=== PATIENT | female | born 2005 | race Caucasian/White ===

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

== ENCOUNTER 2024-01-17 12:07 | Emergency (ER) | payer OTHER ==
--- NOTE | 2024-01-17 12:48 | EDPHYS ---
Physician Documentation [facility] Name: Memo Hobson Age: 18 yrs Sex: Female : 2005 Arrival Date: 01/17/2024 Time: 12:07 Bed 11 Private MD: ED Physician Gretchen Sol HPI: 01/16 12:42 This 18 yrs old Female presents to ER via EMS with complaints of Knee Pain. sb4 12:42 Patient states that she had surgery to repair a left patella fracture about 3 weeks sb4 ago. She is concerned because she thinks the incision site might be infected. She has not been able to follow-up with her surgeon due to lack of transportation. She states that she has had some swelling, pain, and itching in her incision site. She states that she is not sure how to care or clean for it. She has run out of pain medications and has not taken any other medicine for the pain or the itching. She denies any known fever. 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 - Infectious Disease History:: Denies. - Social history:: Smoking status: Patient denies any tobacco usage or history of. ROS: 12:42 Constitutional: Negative for fever, chills, and weight loss, sb4 12:42 MS/extremity: Positive for pain, of the left knee, 12:42 Skin: Positive for swelling, of the left knee, Itching, 12:42 All other systems are negative, Exam: 12:42 Head/Face: Normocephalic, atraumatic. Eyes: Extra-ocular motions intact. Periorbital sb4 areas with no swelling, redness, or edema. ENT: Mucous membranes moist. 12:42 Constitutional: The patient appears in no acute distress, alert, awake, odor- body odor 12:42 Skin: Wound recheck: Surgical incision site anterior knee well-approximated, healing well. I removed Steri-Strips. No dehiscence, swelling, erythema, 12:42 Musculoskeletal/extremity: ROM: limited active range of motion, limited passive range sb4 of motion, Circulation is intact in all extremities. Pulses: are normal with no appreciated deficits, Perfusion: the extremity is normally perfused throughout, Sensation intact. Vital Signs: 12:15 BP 122 / 76; Pulse 97; Resp 18; Temp 98.7(O); Pulse Ox 100% on R/A; Weight 93.89 kg; tl4 Height 5 ft. 4 in. ; Pain 8/10; 12:45 BP 125 / 79; Pulse 87; Resp 16; Temp 98.3(O); Pulse Ox 100% on R/A; tl4 12:15 Body Mass Index 35.53 (93.89 kg, 162.56 cm) - Percentile 97.6 % tl4 12:15 Pain Scale: Adult tl4 MDM: 12:09 Patient medically screened. sb4 12:45 Data reviewed: vital signs, nurses notes, and as a result, I will discharge patient. sb4 Counseling: I had a detailed discussion with the patient and/or guardian regarding the historical points, exam findings, and any diagnostic results supporting the discharge/admit diagnosis, the need for outpatient follow up, a orthopedic surgeon, to return to the emergency department if symptoms worsen or persist or if there are any questions or concerns that arise at home. 01/16 12:32 Order name: Wound Care; Complete Time: 12:55 sb4 01/16 12:32 Order name: Wound dressing; Complete Time: 12:55 sb4 Administered Medications: 13:08 Drug: HYDROcodone-acetaminophen PO 5 mg-325 mg 1 tabs PO once Route: PO; tl4 13:10 Follow up: Response: No adverse reaction; Medication Administered at Departure tl4 13:08 Drug: diphenhydrAMINE PO 25 mg PO once Route: PO; tl4 13:10 Follow up: Response: No adverse reaction; Medication administered at discharge. tl4 Disposition Summary: 01/17/24 12:47 Discharge Ordered Notes: Location: Home sb4 Problem: an ongoing problem sb4 Symptoms: have improved sb4 Condition: Stable sb4 Diagnosis - Pain in left knee sb4 Followup: sb4 - With: Private Physician - When: 2 - 3 days - Reason: Recheck today's complaints, Re-evaluation by your physician Discharge Instructions: - Discharge Summary Sheet sb4 - Wound Care, Adult sb4 - Incision Care, Adult, [id number] sb4 Forms: - Patient Portal Instructions sb4 - Leadership Thank You Letter sb4 Signatures: Hyun Zamudio PA-C PA-C sb4 Laurent Alatorre, RN RN tl4
--- NOTE | 2024-01-17 12:48 | ER ---
Nurse's Notes [facility] Name: Memo Hobson Age: 18 yrs Sex: Female : 2005 Arrival Date: 01/17/2024 Time: 12:07 Bed 11 Private MD: Diagnosis: Pain in left knee Presentation: 01/16 12:15 Chief complaint: Patient states: Pt c/o increased pain, swelling, and itching in left tl4 knee s/p knee surgery approx 2 weeks ago for 'brokien kneecap'. Pt also c/o hip, back, neck and head pain x 1 week. Pt states she is out of her pain medications. Pt did not follow up with surgeon. Coronavirus screen: At this time, the client does not indicate any symptoms associated with coronavirus-19. Ebola Screen: No symptoms or risks identified at this time. Initial Sepsis Screen: Does the patient meet any 2 criteria? No. Patient's initial sepsis screen is negative. Does the patient have a suspected source of infection? No. Patient's initial sepsis screen is negative. Risk Assessment: Do you want to hurt yourself or someone else? Patient reports no desire to harm self or others. Onset of symptoms was January 10, 2024. 12:15 Method Of Arrival: EMS: [facility] tl4 12:15 Acuity: SHERWIN 3 tl4 Triage Assessment: 12:22 General: Appears in no apparent distress. Behavior is calm, cooperative. Pain: tl4 Complains of pain in scalp, left leg and neck and hips and back. EENT: No signs and/or symptoms were reported regarding the EENT system. Neuro: Level of Consciousness is awake, alert, obeys commands, Oriented to person, place, time, situation, Moves all extremities. Full function Speech is normal. Cardiovascular: Capillary refill < 3 seconds Patient's skin is warm and dry. Respiratory: Airway is patent Respiratory effort is even, unlabored, Respiratory pattern is regular, symmetrical, Breath sounds are clear bilaterally. GI: No signs and/or symptoms were reported involving the gastrointestinal system. : No signs and/or symptoms were reported regarding the genitourinary system. Derm: surgical incision site appears well healed; no noted redness, swelling, discharge from site. Wound is well approximated. Musculoskeletal: Reports pain in back, left leg and neck and hips. 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 - Infectious Disease History:: Denies. - Social history:: Smoking status: Patient denies any tobacco usage or history of. Screenin:53 [facility] ED Fall Risk Assessment (Adult) History of falling in the last 3 months, tl4 including since admission No falls in past 3 months (0 pts) Confusion or Disorientation No (0 pts) Intoxicated or Sedated No (0 pts) Impaired Gait No (0 pts) Mobility Assist Device Used No (0 pt) Altered Elimination No (0 pt) Score/Fall Risk Level 0 - 2 = Low Risk Oriented to surroundings, Maintained a safe environment, Educated pt \T\ family on fall prevention, incl call for assistance when getting out of bed, Assessed \T\ reinforced patient's understanding of fall precautions. Abuse screen: Denies threats or abuse. Denies injuries from another. Nutritional screening: No deficits noted. Tuberculosis screening: No symptoms or risk factors identified. Assessment: 13:00 Reassessment: No changes from previously documented assessment. Patient and/or family tl4 updated on plan of care and expected duration. Pain level reassessed. Patient is alert, oriented x 3, equal unlabored respirations, skin warm/dry/pink. Vital Signs: 12:15 BP 122 / 76; Pulse 97; Resp 18; Temp 98.7(O); Pulse Ox 100% on R/A; Weight 93.89 kg; tl4 Height 5 ft. 4 in. ; Pain 8/10; 12:45 BP 125 / 79; Pulse 87; Resp 16; Temp 98.3(O); Pulse Ox 100% on R/A; tl4 12:15 Body Mass Index 35.53 (93.89 kg, 162.56 cm) - Percentile 97.6 % tl4 12:15 Pain Scale: Adult tl4 ED Course: 12:09 Patient arrived in ED. sb4 12:09 Hyun Zamudio PA-C is PHCP. sb4 12:09 Gretchen Sol MD is Attending Physician. sb4 12:15 Laurent Alatorre, PATSY is Primary Nurse. tl4 12:22 Triage completed. tl4 12:33 Wound care: to surgical incision located on left knee was cleaned with soap and water, tl4 dressed with Neosporin, 4X4s, edwardo wrap. 12:35 Edwardo wrap to left knee. tl4 12:38 Arm band placed on right wrist. tl4 12:54 Patient has correct armband on for positive identification. Bed in low position. Call tl4 light in reach. Side rails up X 1. Adult w/ patient. Provided Education on: ed process, call morrison. Client placed on continuous cardiac and pulse oximetry monitoring. NIBP monitoring applied. Door closed. Noise minimized. Moved to private room. 12:55 No provider procedures requiring assistance completed. Patient did not have IV access tl4 during this emergency room visit. Administered Medications: 13:08 Drug: HYDROcodone-acetaminophen PO 5 mg-325 mg 1 tabs PO once Route: PO; tl4 13:10 Follow up: Response: No adverse reaction; Medication Administered at Departure tl4 13:08 Drug: diphenhydrAMINE PO 25 mg PO once Route: PO; tl4 13:10 Follow up: Response: No adverse reaction; Medication administered at discharge. tl4 Medication: 12:52 VIS not applicable for this client. tl4 Outcome: 12:47 Discharge ordered by MD. sb4 13:10 Discharged to home via wheelchair, with family, tl4 13:10 Condition: stable 13:10 Discharge instructions given to patient, family, Instructed on discharge instructions, follow up and referral plans. medication usage, wound care, Demonstrated understanding of instructions, follow-up care, medications, wound care, 13:29 Patient left the ED. tl4 Signatures: Hyun Zamudio PA-C PA-C sb4 Laurent Alatorre, RN RN tl4 Corrections: (The following items were deleted from the chart) 13:27 12:35 BP 125 / 79; Pulse 87bpm; Resp 16bpm; Pulse Ox 100% RA; Temp 98.3F Oral; tl4 tl4 13:28 13:06 Discharged to home via wheelchair, with family, tl4 tl4 : 13:06 Condition: stable tl4 tl4 13: 13:06 Discharge instructions given to patient, family, Instructed on discharge tl4 instructions, follow up and referral plans. medication usage, wound care, Demonstrated understanding of instructions, follow-up care, medications, wound care, tl4
[2024-01-17] MEDS ORDERED: HYDROCODONE/APAP 5/325 MG TAB ONE (12:54)
[2024-01-17] MEDS ORDERED: DIPHENHYDRAMINE 25 MG TAB/CAP ONE (12:55)
[2024-01-17 13:40] VITALS: O2SAT 100
[2024-01-17 13:45] VITALS: BP 125/79; TEMP 98.3
== END 2024-01-17 13:29 | disposition home or self-care (01) ==
LOC: ER 12:07
DX: M25.562 Pain in left knee (principal); Z98.890 Other specified postprocedural states
CPT/HCPCS: 99284

== ENCOUNTER 2024-03-03 02:56 | Emergency (ER) | payer OTHER ==
[2024-03-03] MEDS ORDERED: NA CHLORIDE 0.9% 2,000 ML ONE (03:16)
[2024-03-03 03:29] LABS: Absolute Basophils 0.1 K/uL (0-0.5); Absolute Eosinophils 0.1 K/uL (0-0.5); Absolute Lymphocytes (CBC) 2.9 K/uL (0.7-4.9); Absolute Monocytes 0.9 K/uL (0.1-1.3); Absolute Neutrophil 5.9 K/uL (1.8-8.0); Basophils % 0.6 % (0-1.3); Eosinophils % 1.5 % (0-4.4); Hematocrit 40.8 % (36.0-45.0); Hemoglobin 13.2 g/dL (12.0-15.0); Lymphocytes % 29.2 % (15.3-44.8); MCH 24.9 pg (27.0-35.0); MCHC 32.3 g/dL (32.0-36.0); MCV 77.2 fL (80-100); MPV 9.3 fL (7.6-11.3); Monocytes % 8.9 % (3.3-12.3); Neutrophils % 59.8 % (41.7-73.7); Platelets 318 thou/uL (152-406); RBC Red Blood Cell Count 5.28 M/uL (3.86-4.86)
[2024-03-03 03:31] LABS: Specific Gravity 1.023 (1.005-1.030); Sqamous Epithelial <5 /HPF (None Seen); Urine Bacteria <20 /HPF (<20); Urine Bilirubin NEGATIVE (Negative); Urine Blood Negative (Negative); Urine Clarity Turbid (Clear); Urine Color Light-Yellow (Yellow); Urine Culture Reflex Order NOT NEEDED; Urine Glucose NEGATIVE (Negative); Urine Ketones NEGATIVE (Negative); Urine Microscopic Reflex YN ORDER UMIC; Urine Mucus 1+ /HPF (None Seen); Urine Nitrite 2+ (Negative); Urine Protein NEGATIVE (Negative); Urine RBC <5 /HPF (None Seen); Urine Urobilinogen Normal (Normal); Urine WBC <5 /HPF (<5); Urine pH 5.5 (5.0-7.0)
[2024-03-03 03:32] LABS: PT Prothrombin Time 11.4 SECONDS (9.4-12.5); PTT, Activated Partial Thromb 29.7 SECONDS (24.3-36.9); Protime INR 1.02
[2024-03-03 03:37] LABS: Barbiturates NEGATIVE (NEGATIVE); Benzodiazepines NEGATIVE (NEGATIVE); Cocaine NEGATIVE (NEGATIVE); METHAMPHETAM NEGATIVE (NEGATIVE); Methadone NEGATIVE (NEGATIVE); Opiates NEGATIVE (NEGATIVE); Phencyclidine NEGATIVE (NEGATIVE); THC Cannibis NEGATIVE (NEGATIVE)
[2024-03-03 03:48] LABS: ALT/SGPT 36 U/L (13-56); AST/SGOT 20 U/L (15-37); Albumin 3.6 g/dL (3.4-5.0); Albumin/Globulin Ratio 0.8 (1.1-1.8); Alkaline Phosphatase 87 U/L (45-117); Anion Gap 8.2 mEq/L (5.0-15.0); BUN Blood Urea Nitrogen 12 mg/dL (7-18); Bicarbonate 25 mEq/L (21-32); Bilirubin Direct < 0.2 mg/dL (0-0.2); Bilirubin Total 0.2 mg/dL (0.2-1.0); Globulin 4.7 g/dL (2.3-3.5); Glomerular Filtration Rate 112 ml/min (=/>90); Glucose Level 93 mg/dL (74-106); Potassium 3.2 mEq/L (3.5-5.1); Protein, Total 8.3 g/dL (6.4-8.2); Sodium Level 141 mEq/L (136-145)
--- NOTE | 2024-03-03 04:29 | EDPHYS ---
Physician Documentation [facility] Name: Memo Hobson Age: 18 yrs Sex: Female : 2005 Arrival Date: 03/03/2024 Time: 02:56 Bed 6 Private MD: ED Physician Ronaldo Chung HPI: 03/03 03:01 This 18 yrs old Female presents to ER via Unassigned with complaints of sp4 overdose on Zoloft . 04:18 . sp4 04:26 Patient to 10 mg of Zoloft x 20 tabs prior to arrival , also consumes 6 tabs of full sp4 dose aspirin prior to arrival. Reports she did this out of suicide attempt. . 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 - Infectious Disease History:: Denies. - Social history:: Smoking status: Patient denies any tobacco usage or history of. - Family history:: not pertinent. ROS: 04:26 Constitutional: Negative for fever, chills, and weight loss, positive for depression , sp4 positive for suicide attempt 04:26 All other systems are negative, Exam: 04:23 Constitutional: This is a well developed, well nourished patient who is awake, alert, sp4 and in no acute distress. Head/Face: Normocephalic, atraumatic. Eyes: Pupils equal round and reactive to light, extra-ocular motions intact. Lids and lashes normal. Conjunctiva and sclera are not injected. Cornea within normal limits. Periorbital areas with no swelling, redness, or edema. ENT: Nares patent. No nasal discharge, no septal abnormalities noted. Tympanic membranes are normal and external auditory canals are clear. Oropharynx with no redness, swelling, or masses, exudates, or evidence of obstruction, uvula midline. Mucous membranes moist. Neck: Trachea midline, no thyromegaly or masses palpated, and no cervical lymphadenopathy. Supple, full range of motion without nuchal rigidity, or vertebral point tenderness. Chest/axilla: Normal chest wall appearance and motion. Nontender with no deformity. No lesions are appreciated. Cardiovascular: Regular rate and rhythm with a normal S1 and S2. No gallops, murmurs, or rubs. Normal PMI, no JVD. No pulse deficits. Respiratory: Lungs have equal breath sounds bilaterally, clear to auscultation and percussion. No rales, rhonchi or wheezes noted. No increased work of breathing, no retractions or nasal flaring. Abdomen/GI: Soft, with normal bowel sounds. No distension or tympany. No guarding or rebound. No evidence of tenderness throughout. Back: No spinal tenderness. No costovertebral tenderness. Skin: Warm, dry with normal turgor. Normal color with no rashes, no lesions, and no evidence of cellulitis. MS/ Extremity: Pulses equal, no cyanosis. Neurovascular intact. Full, normal range of motion. Neuro: Awake and alert, GCS 15, oriented to person, place, time, and situation. Cranial nerves II-XII grossly intact. Motor strength 5/5 in all extremities. Sensory grossly intact. Psych: Awake, alert, with orientation to person, place and time. Behavior, mood, and affect are within normal limits 04:23 ECG was reviewed by the Attending Physician. EKG at 0302 NSR at normal sinus rhythm rate 66 Vital Signs: 02:56 BP 113 / 92; Pulse 88; Resp 16; Temp 98.8; Pulse Ox 99% ; Weight 90.72 kg; Height 5 ft. bm8 4 in. ; Pain 8/10; 03:34 BP 108 / 78; Pulse 61; Resp 20; Temp 98.8; Pulse Ox 99% ; Pain 2/10; bm8 04:00 BP 112 / 71; Pulse 80; Resp 19; Temp 98.7; Pulse Ox 100% ; Pain 0/10; bm8 05:00 BP 115 / 55; Pulse 67; Resp 16; Temp 98.7; Pulse Ox 96% ; Pain 0/10; bm8 05:51 BP 113 / 82; Pulse 68; Resp 20; Temp 98.8; Pulse Ox 99% on R/A; Pain 0/10; bm8 02:56 Body Mass Index 34.33 (90.72 kg, 162.56 cm) - Percentile 97.1 % bm8 02:56 Pain Scale: Adult bm8 03:34 Pain Scale: Adult bm8 04:00 Pain Scale: Adult bm8 05:00 Pain Scale: Adult bm8 05:51 Pain Scale: Adult bm8 Gretchen Coma Score: 03:34 Eye Response: spontaneous(4). Motor Response: obeys commands(6). Verbal Response: bm8 oriented(5). Total: 15. 04:00 Eye Response: spontaneous(4). Motor Response: obeys commands(6). Verbal Response: bm8 oriented(5). Total: 15. 04:23 Eye Response: spontaneous(4). Motor Response: obeys commands(6). Verbal Response: sp4 oriented(5). Total: 15. 05:00 Eye Response: spontaneous(4). Motor Response: obeys commands(6). Verbal Response: bm8 oriented(5). Total: 15. 05:51 Eye Response: spontaneous(4). Motor Response: obeys commands(6). Verbal Response: bm8 oriented(5). Total: 15. MDM: 03:02 Medical Screening Exam initiated sp4 04:26 Differential diagnosis: drug withdrawal. acute psychotic break, depression, psychosis sp4 secondary to non-compliance. Data reviewed: vital signs, nurses notes, lab test result(s), EKG. Consideration of Admission/Observation Escalation of care including admission/observation considered. ED course: Patient is medically cleared and will start transfer process to psychiatric hospital. 03/03 03:02 Order name: Acetaminophen; Complete Time: 04:18 sp4 03/03 03:02 Order name: Basic Metabolic Panel; Complete Time: 04:18 sp4 03/03 03:02 Order name: CBC with Diff; Complete Time: 04:18 sp4 03/03 03:02 Order name: ETOH Level; Complete Time: 04:18 sp4 03/03 03:02 Order name: Hepatic Function; Complete Time: 04:18 sp4 03/03 03:02 Order name: PT-INR; Complete Time: 04:18 sp4 03/03 03:02 Order name: Test, Urine; Complete Time: 04:18 sp4 03/03 03:02 Order name: Ptt, Activated; Complete Time: 04:18 sp4 03/03 03:02 Order name: Salicylate; Complete Time: 04:18 sp4 03/03 03:02 Order name: Urinalysis w/ reflexes; Complete Time: 04:18 sp4 03/03 03:02 Order name: Urine Drug Screen; Complete Time: 04:18 sp4 03/03 03:02 Order name: EKG - Nurse/Tech; Complete Time: 03:25 sp4 03/03 03:02 Order name: IV Saline Lock; Complete Time: 03:25 sp4 03/03 03:02 Order name: Labs collected and sent; Complete Time: 03:25 sp4 03/03 03:02 Order name: Suicide Precautions; Complete Time: 03:25 sp4 03/03 03:02 Order name: Suicide Screening ([place]); Complete Time: 03:25 sp4 EC:23 Rate is 66 beats/min. Rhythm is regular, Normal Sinus Rhythm. QRS [place] is Normal. [place] sp4 interval is normal. QRS interval is normal. QT interval is normal. No Q waves. T waves are Normal. No ST changes noted. Clinical impression: Normal ECG. Interpreted by me. Reviewed by me. Administered Medications: 03:25 Drug: NS 0.9% IV 1000 ml IV at 125 ml/hr continuous Route: IV; Rate: 125 ml/hr; Site: [facility] right antecubital; 06:14 Follow up: Response: No adverse reaction; IV Status: Order to discontinue infusion bm8 03:25 Drug: NS 0.9% IV 1000 ml IV at 1000 ml once; to be given as a bolus over 60 minutes bm8 Route: IV; Rate: 1000 ml; Site: right antecubital; 04:39 Follow up: Response: No adverse reaction; IV Status: Completed infusion; IV Intake: bm8 1000ml Disposition Summary: 03/03/24 04:29 Transfer Ordered Notes: Transfer Location: Psych Facility sp4 Reason: Higher level of care sp4 Condition: Stable sp4 Problem: new sp4 Symptoms: have improved sp4 Accepting Physician: [facility] (03/03/24 06:13) bm8 Diagnosis - Acute overdose, acute SSRI overdose, acute aspirin overdose, worsening depression, sp4 suicidal ideation with plan Discharge Instructions: - Discharge Summary Sheet rv1 Forms: - SBAR form rv1 - Medication Reconciliation Form sp4 Signatures: Dispatcher [employer] EDMS Potepalov, Ronaldo, MD MD sp4 Andrew Kulkarni, RN RN bm8 Corrections: (The following items were deleted from the chart) 03:03 03:03 ACETAMINOPHEN+C.LAB.BRZ ordered. EDMS EDMS 03:03 03:03 BASIC METABOLIC PANEL+C.LAB.BRZ ordered. EDMS EDMS 03:03 03:03 CBC+H.LAB.BRZ ordered. EDMS EDMS 03:03 03:03 ETHANOL+C.LAB.BRZ ordered. EDMS EDMS 03:03 03:03 HEPATIC FUNCTION+C.LAB.BRZ ordered. EDMS EDMS 03:03 03:03 PROTIME (+INR)+COAG.LAB.BRZ ordered. EDMS EDMS 03:03 03:03 Test, Urine+UC.LAB.BRZ ordered. EDMS EDMS 03:03 03:03 PTT, ACTIVATED+COAG.LAB.BRZ ordered. EDMS EDMS 03:03 03:03 SALICYLATE+C.LAB.BRZ ordered. EDMS EDMS 03:03 03:03 Urinalysis+U.LAB.BRZ ordered. EDMS EDMS 03:03 03:03 URINE DRUG SCREEN+UC.LAB.BRZ ordered. EDMS EDMS 06:13 04:29 [facility] sp4 bm8
--- NOTE | 2024-03-03 04:29 | ER ---
Nurse's Notes [facility] Name: Memo Hobson Age: 18 yrs Sex: Female : 2005 Arrival Date: 03/03/2024 Time: 02:56 Bed 6 Private MD: Diagnosis: Acute overdose, acute SSRI overdose, acute aspirin overdose, worsening depression, suicidal ideation with plan Presentation: 03/03 02:56 Chief complaint: Patient states: I TRIED TO KILL MY SELF BY TAKING ZOLOFT. i JUST DON'T bm8 FEEL IMPORTANT TO ANYONE. Coronavirus screen: At this time, the client does not indicate any symptoms associated with coronavirus-19. Ebola Screen: Patient negative for fever greater than or equal to 101.5 degrees Fahrenheit, and additional compatible Ebola Virus Disease symptoms Patient denies exposure to infectious person. Patient denies travel to an Ebola-affected area in the 21 days before illness onset. No symptoms or risks identified at this time. Initial Sepsis Screen: Does the patient meet any 2 criteria? No. Patient's initial sepsis screen is negative. Does the patient have a suspected source of infection? No. Patient's initial sepsis screen is negative. Risk Assessment: Do you want to hurt yourself or someone else? Patient reports desire/thoughts of hurting themselves or someone else. Provider notified. Onset of symptoms is unknown. 02:56 Method Of Arrival: EMS: [facility] bm8 02:56 Acuity: SHERWIN 2 bm8 Triage Assessment: 02:56 General: Appears in no apparent distress. uncomfortable, Behavior is cooperative, bm8 appropriate for age, drowsy. General: EMS already called poison control . Pain: Complains of pain in chest Pain currently is 8 out of 10 on a pain scale. Quality of pain is described as sharp, Pain began suddenly. EENT: No deficits noted. No signs and/or symptoms were reported regarding the EENT system. Neuro: No deficits noted. Level of Consciousness is awake, alert, obeys commands, Oriented to person, place, time, situation, Appropriate for age Developmental Psychologist are equal bilaterally Moves all extremities. Full function Gait is Speech is normal, Facial symmetry appears normal, Pupils are PERRLA, Pupil Size: 5mm dilated, Reports photophobia. Cardiovascular: Reports chest pain, Heart tones S1 S2 present Capillary refill < 3 seconds in bilateral fingers toes Patient's skin is warm and dry. Rhythm is sinus rhythm. Respiratory: Airway is patent Trachea midline Respiratory effort is even, unlabored, Respiratory pattern is regular, symmetrical, Breath sounds are clear bilaterally. GI: No deficits noted. No signs and/or symptoms were reported involving the gastrointestinal system. : No deficits noted. No signs and/or symptoms were reported regarding the genitourinary system. Derm: No deficits noted. No signs and/or symptoms reported regarding the dermatologic system. Musculoskeletal: No deficits noted. No signs and/or symptoms reported regarding the musculoskeletal system. 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 - Infectious Disease History:: Denies. - Social history:: Smoking status: Patient denies any tobacco usage or history of. - Family history:: not pertinent. Screenin:34 [facility] ED Fall Risk Assessment (Adult) History of falling in the last 3 months, bm8 including since admission No falls in past 3 months (0 pts) Confusion or Disorientation No (0 pts) Intoxicated or Sedated No (0 pts) Impaired Gait Yes (1 pt) Mobility Assist Device Used No (0 pt) Altered Elimination No (0 pt) Score/Fall Risk Level 0 - 2 = Low Risk Oriented to surroundings, Maintained a safe environment, Educated pt \\T\\ family on fall prevention, incl call for assistance when getting out of bed, Assessed \\T\\ reinforced patient's understanding of fall precautions, Hourly rounding (assess needs \\T\\ fall precautionary measures) done, Used ambulatory aids as needed (educated on \\T\\ assisted with), Used gait belt as appropriate. Abuse screen: Denies threats or abuse. Nutritional screening: No deficits noted. Tuberculosis screening: No symptoms or risk factors identified. Assessment: 03:34 Reassessment: Patient appears in no apparent distress at this time. Patient and/or bm8 family updated on plan of care and expected duration. Pain level reassessed. Patient is alert, oriented x 3, equal unlabored respirations, skin warm/dry/pink. pt is in room by self, resting with eyes closed breathing is even unlabored at this time Patient denies pain at this time. Patient states feeling better. Patient states symptoms have improved. 04:00 Reassessment: Patient appears in no apparent distress at this time. Patient and/or bm8 family updated on plan of care and expected duration. Pain level reassessed. Patient is alert, oriented x 3, equal unlabored respirations, skin warm/dry/pink. Patient denies pain at this time. Patient states feeling better. Patient states symptoms have improved. General: Appears in no apparent distress. comfortable, Behavior is calm, cooperative, appropriate for age. Pain: Denies pain. Neuro: No deficits noted. Level of Consciousness is awake, alert, obeys commands, Oriented to person, place, time, situation, Appropriate for age. Cardiovascular: Denies chest pain, Heart tones S1 S2 present. Respiratory: Airway is patent Respiratory effort is even, unlabored, Respiratory pattern is regular, symmetrical, Breath sounds are clear bilaterally. GI: No signs and/or symptoms were reported involving the gastrointestinal system. : No signs and/or symptoms were reported regarding the genitourinary system. EENT: No signs and/or symptoms were reported regarding the EENT system. Derm: No signs and/or symptoms reported regarding the dermatologic system. Musculoskeletal: No signs and/or symptoms reported regarding the musculoskeletal system. 04:49 Reassessment: Report to PATSY Campbell \\José Manuel\\ [facility]. bm8 05:00 Reassessment: Patient appears in no apparent distress at this time. No changes from bm8 previously documented assessment. Patient and/or family updated on plan of care and expected duration. Pain level reassessed. Patient is alert, oriented x 3, equal unlabored respirations, skin warm/dry/pink. 05:51 Reassessment: Patient appears in no apparent distress at this time. No changes from bm8 previously documented assessment. Patient and/or family updated on plan of care and expected duration. Pain level reassessed. Patient is alert, oriented x 3, equal unlabored respirations, skin warm/dry/pink. 05:55 Reassessment: Pt's belonging were handed off to [facility] in sight of pt. bm8 Psych: 02:56 [place] Suicide Severity Screening: In the past month, have you wished you were bm8 or wished you could go to sleep and not wake up? Patient responds "yes." Based off the client's responses additional C-SSRS screening is required. "In the past month, have you actually had any thoughts of killing yourself?" Patient responds "yes." Based off the client's response additional [place] suicide severity screening questions to be further documented on paper forms. "In your lifetime, have you ever done anything, started to do anything, or prepared to do anything to end your life?" Patient responds "yes." Patient reports suicidal intent within 3 past months. Patient reports suicidal intent occurred greater than 3 months prior. pt has multiple attempts in past. Subjective: Patient's mood is sad, Delusions are denied, Hallucinations are denied Having thoughts of suicide. Plan for suicide is overdose by medication. Objective: Patient is cooperative, Speech is normal, Affect is appropriate. Interventions: Removed personal items and placed in bag. Patient placed in hospital gown. Searched person for dangerous items. Urine collected and sent for urine drug test. Belonging list filled out. Patient reassessed during use of restraints. Patient is physically safe. Patient's cardiac status is stable. Patient's respirations are even and unlabored. Patient has good circulation in all extremities as indicated by capillary refill < 3 seconds. Patient's ROM assessed and is intact. Patient nutrition and hydration needs will continue to be monitored and addressed. Patient hygiene and elimination needs met. Patient assessed for signs of distress. Patient remains reasonably comfortable at this time. Safety Checks: Personal items have been removed. Door is open. No visitors are present at this time. pt's asked to wait in lobby until pt is settled in room. Pt denies substance abuse. Commitment: Patient will be a voluntary commitment. Vital Signs: 02:56 BP 113 / 92; Pulse 88; Resp 16; Temp 98.8; Pulse Ox 99% ; Weight 90.72 kg; Height 5 ft. bm8 4 in. ; Pain 8/10; 03:34 BP 108 / 78; Pulse 61; Resp 20; Temp 98.8; Pulse Ox 99% ; Pain 2/10; bm8 04:00 BP 112 / 71; Pulse 80; Resp 19; Temp 98.7; Pulse Ox 100% ; Pain 0/10; bm8 05:00 BP 115 / 55; Pulse 67; Resp 16; Temp 98.7; Pulse Ox 96% ; Pain 0/10; bm8 05:51 BP 113 / 82; Pulse 68; Resp 20; Temp 98.8; Pulse Ox 99% on R/A; Pain 0/10; bm8 02:56 Body Mass Index 34.33 (90.72 kg, 162.56 cm) - Percentile 97.1 % bm8 02:56 Pain Scale: Adult bm8 03:34 Pain Scale: Adult bm8 04:00 Pain Scale: Adult bm8 05:00 Pain Scale: Adult bm8 05:51 Pain Scale: Adult bm8 Gretchen Coma Score: 03:34 Eye Response: spontaneous(4). Motor Response: obeys commands(6). Verbal Response: bm8 oriented(5). Total: 15. 04:00 Eye Response: spontaneous(4). Motor Response: obeys commands(6). Verbal Response: bm8 oriented(5). Total: 15. 04:23 Eye Response: spontaneous(4). Motor Response: obeys commands(6). Verbal Response: sp4 oriented(5). Total: 15. 05:00 Eye Response: spontaneous(4). Motor Response: obeys commands(6). Verbal Response: bm8 oriented(5). Total: 15. 05:51 Eye Response: spontaneous(4). Motor Response: obeys commands(6). Verbal Response: bm8 oriented(5). Total: 15. ED Course: 02:56 Arm band placed on right wrist. bm8 02:57 Patient arrived in ED. rv1 03:00 Safety Checks: Personal items have been removed. The door is open or patient has been bm8 placed in a hallway bed/chair. There are no family/friend visitors at this time Sitter present at this time. 03:01 Ronaldo Chung MD is Attending Physician. sp4 03:22 Andrew Kulkarni, PATSY is Primary Nurse. bm8 03:28 Triage completed. bm8 03:34 Patient has correct armband on for positive identification. Bed in low position. Side bm8 rails up X 1. Client placed on continuous cardiac and pulse oximetry monitoring. NIBP monitoring applied. shot fireman on. Pulse ox on. NIBP on. Noise minimized. Visitors limited. Lights dimmed. Warm blanket given. Pillow given. Verbal reassurance given. Head of bed lowered. 03:34 No provider procedures requiring assistance completed. Initial lab(s) drawn, by me, bm8 sent to lab. Urine collected: clean catch specimen, clear, EKG done, by ED staff, reviewed by Ronaldo Chung MD. Inserted saline lock: 20 gauge in right antecubital area, using aseptic technique. Blood collected. Flushed with 10 mL NS. Patient maintains SpO2 saturation greater than 95% on room air. 04:00 Safety Checks: Personal items have been removed. The door is open or patient has been bm8 placed in a hallway bed/chair. There are no family/friend visitors at this time Sitter present at this time. 04:24 Faxed pt clinicals to the following facilities for placement; [address] 04:34 Provided Education on: SI/HI policies and procedures . bm8 04:40 Pt accepted to [facility] by Dr. Parr. rv1 04:54 Admin Approval given by Marcelo Knox. rv1 05:00 Safety Checks: Personal items have been removed. The door is open or patient has been bm8 placed in a hallway bed/chair. A family member and/or friend is present and encouraged to stay. at bedside Sitter present at this time. 05:10 Justine with [facility] gave 20 min ETA. rv1 05:51 Safety Checks: Personal items have been removed. The door is open or patient has been bm8 placed in a hallway bed/chair. A family member and/or friend is present and encouraged to stay. Sitter present at this time. 05:51 IV discontinued, intact, bleeding controlled, No redness/swelling at site. Pressure bm8 dressing applied. Administered Medications: 03:25 Drug: NS 0.9% IV 1000 ml IV at 125 ml/hr continuous Route: IV; Rate: 125 ml/hr; Site: bm8 right antecubital; 06:14 Follow up: Response: No adverse reaction; IV Status: Order to discontinue infusion bm8 03:25 Drug: NS 0.9% IV 1000 ml IV at 1000 ml once; to be given as a bolus over 60 minutes bm8 Route: IV; Rate: 1000 ml; Site: right antecubital; 04:39 Follow up: Response: No adverse reaction; IV Status: Completed infusion; IV Intake: bm8 1000ml Medication: 03:34 VIS not applicable for this client. bm8 Intake: 04:39 IV: 1000ml; Total: 1000ml. bm8 Outcome: 04:29 ER care complete, transfer ordered by . sp4 06:00 Transferred by ground EMS Transfer form completed. Note: [facility] bm8 06:00 Condition: stable 06:00 Instructed on the need for transfer, Demonstrated understanding of instructions, follow-up care, medications, 06:13 Patient left the ED. bm8 Signatures: Lyly Pike rv1 Ronaldo Chung MD MD sp4 Andrew Kulkarni RN RN bm8 Corrections: (The following items were deleted from the chart) 03:40 02:56 Risk Assessment: Do you want to hurt yourself or someone else? Patient reports no bm8 desire to harm self or others. bm8 05:20 05:19 Pt accepted to [facility] by Dr. Parr rv1 rv1
[2024-03-03 07:29] VITALS: BP 113/82; TEMP 98.8; O2SAT 99
== END 2024-03-03 06:13 ==
LOC: ER 02:56
DX: T43.222A Poisoning by selective serotonin reuptake inhibitors, intentional self-harm, initial encounter (principal); T39.012A Poisoning by aspirin, intentional self-harm, initial encounter; F32.A Depression, unspecified
CPT/HCPCS: 96361; 93005; 85025; 81001; 80048; 36415; 81025; 85610; 80076; 85730; 80307; 96360; 99285; 80143; 80179; 82077; J7030

== ENCOUNTER 2024-10-01 07:42 | Emergency (ER) | payer OTHER ==
[2024-10-01 08:29] LABS: Specific Gravity 1.018 (1.005-1.030)
[2024-10-01 08:39] LABS: Absolute Lymphocytes (CBC) 2.1 K/uL (0.7-4.9); Absolute Monocytes 0.7 K/uL (0.1-1.3); Absolute Neutrophil 5.4 K/uL (1.8-8.0); Basophils % 0.6 % (0-1.3); Eosinophils % 0.3 % (0-4.4); Hematocrit 37.4 % (36.0-45.0); Hemoglobin 12.4 g/dL (12.0-15.0); Lymphocytes % 25.3 % (15.3-44.8); MCH 25.4 pg (27.0-35.0); MCV 76.8 fL (80-100); MPV 9.9 fL (7.6-11.3); Neutrophils % 65.8 % (41.7-73.7); Platelets 238 thou/uL (152-406); RBC Red Blood Cell Count 4.88 M/uL (3.86-4.86); Red Cell Distribution Width 15.8 % (12.1-15.2)
[2024-10-01] MEDS ORDERED: IBUPROFEN 400 MG TAB ONE (08:44)
[2024-10-01] MEDS ORDERED: IBUPROFEN 200 MG TAB PO ONE (08:44)
[2024-10-01 09:04] LABS: ALT/SGPT 26 U/L (13-56); AST/SGOT 18 U/L (15-37); Albumin 3.6 g/dL (3.4-5.0); Albumin/Globulin Ratio 0.9 (1.1-1.8); Alkaline Phosphatase 85 U/L (45-117); Anion Gap 10.3 mEq/L (5.0-15.0); BUN Blood Urea Nitrogen 14 mg/dL (7-18); Bicarbonate 24 mEq/L (21-32); Bilirubin Total 0.4 mg/dL (0.2-1.0); Globulin 4.1 g/dL (2.3-3.5); Glomerular Filtration Rate 112 ml/min (=/>90); Glucose Level 89 mg/dL (74-106); Potassium 3.3 mEq/L (3.5-5.1); Protein, Total 7.7 g/dL (6.4-8.2); Sodium Level 141 mEq/L (136-145)
[2024-10-01 09:05] LABS: Bilirubin Direct < 0.2 mg/dL (0-0.2); Bilirubin Indirect, Calculated 0.2 mg/dL (0.2-0.8)
[2024-10-01 09:06] LABS: Barbiturates NEGATIVE (NEGATIVE); Benzodiazepines NEGATIVE (NEGATIVE); Cocaine NEGATIVE (NEGATIVE); METHAMPHETAM NEGATIVE (NEGATIVE); Methadone NEGATIVE (NEGATIVE); Opiates NEGATIVE (NEGATIVE); Phencyclidine NEGATIVE (NEGATIVE); THC Cannibis NEGATIVE (NEGATIVE)
--- NOTE | 2024-10-01 09:27 | ER ---
Nurse's Notes [facility] Name: Memo Hobson Age: 18 yrs Sex: Female : 2005 Arrival Date: 10/01/2024 Time: 07:42 Bed 14 Private MD: Diagnosis: Suicidal ideations Presentation: 10/01 07:45 Acuity: SHERWIN 2 hb 07:46 Risk Assessment: Do you want to hurt yourself or someone else? Patient reports db desire/thoughts of hurting themselves or someone else. Provider notified. 07:46 Onset of symptoms was October 01, 2024. db 07:53 Chief complaint: ARRIVED WITH PD PICKED UP FROM [facility]. PER PD REPORT PT HAS db NOT BEEN TAKING BIPOLAR MEDS. AT 0300 STARTED TALKING ABOUT WAYS TO KILL SELF AND WALKING AROUND CARRYING A KNIFE, MAKING RANDOM STATEMENTS OF OTHER WAYS TO KILL SELF. HAS NOT BEEN SLEEPING. NOW CALM COOPERATIVE. ON A PENITENTIARY WARRANT. Coronavirus screen: Client denies travel out of the [place] in the last 14 days. At this time, the client does not indicate any symptoms associated with coronavirus-19. Ebola Screen: Patient negative for fever greater than or equal to 101.5 degrees Fahrenheit, and additional compatible Ebola Virus Disease symptoms Patient denies exposure to infectious person. Patient denies travel to an Ebola-affected area in the 21 days before illness onset. No symptoms or risks identified at this time. 07:53 Method Of Arrival: Law Enforcement: [facility] db 09:16 Initial Sepsis Screen: Does the patient meet any 2 criteria? No. Patient's initial db sepsis screen is negative. Does the patient have a suspected source of infection? No. Patient's initial sepsis screen is negative. Triage Assessment: 07:56 General: Appears in no apparent distress. comfortable, Behavior is calm, cooperative. db Pain: Denies pain. Neuro: Level of Consciousness is awake, alert, obeys commands, Oriented to person, place, time, situation. Respiratory: Airway is patent Respiratory effort is even, unlabored, Respiratory pattern is regular, symmetrical. Historical: - Allergies: 07:52 NKDA; db - PMHx: 07:52 Anxiety; Bipolar disorder; depressive disorder; multiple personality disorder; PTSD; db - PSHx: 07:52 left knee; db - Immunization history:: Adult Immunizations unknown. - Infectious Disease History:: Denies. - Family history:: not pertinent. - Hospitalizations: : No recent hospitalization is reported. - Social history:: Smoking status: unknown. Screenin:35 [facility] ED Fall Risk Assessment (Adult) History of falling in the last 3 months, db including since admission No falls in past 3 months (0 pts) Confusion or Disorientation No (0 pts) Intoxicated or Sedated No (0 pts) Impaired Gait No (0 pts) Mobility Assist Device Used No (0 pt) Altered Elimination No (0 pt) Score/Fall Risk Level 0 - 2 = Low Risk Oriented to surroundings, Maintained a safe environment. Abuse screen: Denies threats or abuse. Denies injuries from another. Nutritional screening: No deficits noted. Tuberculosis screening: No symptoms or risk factors identified. Assessment: 07:56 Reassessment: PT AMBULATORY TO RESTROOM. db 09:16 Reassessment: REPORT GIVEN TO [facility]. db 09:34 Reassessment: Patient appears in no apparent distress at this time. Patient and/or db family updated on plan of care and expected duration. Pain level reassessed. Patient is alert, oriented x 3, equal unlabored respirations, skin warm/dry/pink. PT SITTING UP IN NAD. General: Appears in no apparent distress. comfortable, Behavior is calm, cooperative. Neuro: Level of Consciousness is awake, alert, obeys commands, Oriented to person, place, time, situation. Respiratory: Airway is patent Respiratory effort is even, unlabored, Respiratory pattern is regular, symmetrical. 10:00 Reassessment: Patient appears in no apparent distress at this time. Patient and/or db family updated on plan of care and expected duration. Pain level reassessed. Patient is alert, oriented x 3, equal unlabored respirations, skin warm/dry/pink. 10:05 Reassessment: EMS AT PATIENT BEDSIDE FOR TRANSPORT TO PSYCH FACILITY. db Psych: 07:46 [place] Suicide Severity Screening: In the past month, have you wished you were db or wished you could go to sleep and not wake up? Patient responds "yes." "In the past month, have you actually had any thoughts of killing yourself?" Patient responds "yes." "In your lifetime, have you ever done anything, started to do anything, or prepared to do anything to end your life?" Patient responds "yes." Patient reports suicidal intent occurred greater than 3 months prior. Subjective: Patient's mood is sad, Delusions are denied, Hallucinations are denied Having thoughts of suicide. Denies suicidal plan. Objective: Patient is cooperative, Speech is normal, Affect is appropriate. Objective:. Interventions:. Interventions: Removed personal items and placed in bag. Patient placed in hospital gown. Searched person for dangerous items. Urine collected and sent for urine drug test. Belonging list filled out. Safety Checks: Personal items have been removed. Door is open. No visitors are present at this time. Pt denies substance abuse. Commitment: Commitment papers completed. Vital Signs: 08:07 BP 116 / 89; Pulse 89; Resp 16; Temp 97.2; Pulse Ox 100% on R/A; Weight 81.65 kg; em1 Height 5 ft. 4 in. ; Pain 0/10; 10:06 BP 96 / 63; Pulse 60; Resp 16; Temp 97.8; Pulse Ox 99% ; db 08:07 Body Mass Index 30.90 (81.65 kg, 162.56 cm) - Percentile 94.3 % em1 08:07 Pain Scale: Adult em1 ED Course: 07:44 Patient arrived in ED. sj2 07:46 Jcarlos Harden MD is Attending Physician. rn 07:50 Sitter at bedside. db 07:52 Sabi Greene, PATSY is Primary Nurse. db 07:56 Arm band placed on Patient placed in an exam room. db 08:31 Acetaminophen Sent. em1 08:31 Basic Metabolic Panel Sent. em1 08:31 CBC with Diff Sent. em1 08:31 ETOH Level Sent. em1 08:31 Hepatic Function Sent. em1 08:31 Ptt, Activated Sent. em1 08:31 Salicylate Sent. em1 08:31 Urine Drug Screen Sent. em1 08:32 Initial lab(s) drawn, by me, sent to lab. Inserted saline lock: 20 gauge in right em1 antecubital area, using aseptic technique. Blood collected. Flushed with 10 mL NS. 08:49 EKG done, by ED staff, reviewed by Jcarlos Harden MD. em1 09:15 connected Louise from [facility] with Sabi Rn for nurse to nurse/. eb 09:29 administrative approval given by Lola Zamudio/ patient has been accepted to [facility]/ Dr. Marco A Mccauley has accepted the patient in transfer/. 09:36 Patient has correct armband on for positive identification. Bed in low position. Call db light in reach. Side rails up X 1. Warm blanket given. Pillow given. 10:00 Triage completed. 10:05 Provided Education on: TRANSFER TO PSYCH FACILITY . db 10:05 No provider procedures requiring assistance completed. IV discontinued, intact, db bleeding controlled, No redness/swelling at site. Administered Medications: 08:45 Drug: Ibuprofen PO 600 mg PO once Route: PO; db 09:23 Follow up: Response: No adverse reaction db Medication: 10:05 VIS not applicable for this client. db Outcome: 09:27 ER care complete, transfer ordered by . rn 10:05 Transferred by ground EMS Transfer form completed. Note: TO PSYCH FACILITY db 10:05 Condition: stable 10:05 Instructed on the need for transfer, 10:16 Patient left the ED. db Signatures: Jcarlos Harden MD MD rn Martinez, Eric em1 Heather Stafford, RN RN Nicky Acuna Sabi Greene, RN RN Alivia Enamorado sj2 Corrections: (The following items were deleted from the chart) 08:36 08:31 PROTIME (+INR)+COAG.LAB.BRZ drawn and sent. em1 EDMS
--- NOTE | 2024-10-01 09:27 | EDPHYS ---
Physician Documentation [facility] Name: Memo Hobson Age: 18 yrs Sex: Female : 2005 Arrival Date: 10/01/2024 Time: 07:42 Bed 14 Private MD: ED Physician Jcarlos Harden HPI: 10/01 08:15 This 18 yrs old Female presents to ER via [employer] with complaints of Suicidal rn Ideation. 08:15 The patient presents to the emergency department with depression, suicide ideation. rn Onset: The symptoms/episode began/occurred at an unknown time. Severity of symptoms: At their worst the symptoms were moderate in the emergency department the symptoms are unchanged. Patient reports suicidal ideations, police brought her in under [facility] for concerns that she is going to hurt herself. Per reports she was found with a knife. Patient has multiple admissions to psychiatric facilities. Denies any self-harm attempt, did not take any pills or overdose, did not cut herself.. Historical: - Allergies: 07:52 NKDA; db - PMHx: 07:52 Anxiety; Bipolar disorder; depressive disorder; multiple personality disorder; PTSD; db - PSHx: 07:52 left knee; db - Immunization history:: Adult Immunizations unknown. - Infectious Disease History:: Denies. - Family history:: not pertinent. - Hospitalizations: : No recent hospitalization is reported. - Social history:: Smoking status: unknown. ROS: 08:15 Constitutional: Negative for fever, chills, and weight loss, Neck: Negative for injury, rn pain, and swelling, Cardiovascular: Negative for chest pain, palpitations, and edema, Respiratory: Negative for shortness of breath, cough, wheezing, and pleuritic chest pain, Abdomen/GI: Negative for abdominal pain, nausea, vomiting, diarrhea, and constipation, MS/Extremity: Negative for injury and deformity, Skin: Negative for injury, rash, and discoloration, Neuro: Negative for headache, weakness, numbness, tingling, and seizure, Exam: 08:15 Constitutional: This is a well developed, well nourished patient who is awake, alert, rn and in no acute distress. Cardiovascular: Regular rate and rhythm. No pulse deficits. Respiratory: Speaking full sentences, unlabored. Neuro: Awake and alert, GCS 15 Psych: Awake, alert, with orientation to person, place and time. Behavior, mood, and affect are within normal limits. 10:52 ECG was reviewed by the Attending Physician. rn Vital Signs: 08:07 BP 116 / 89; Pulse 89; Resp 16; Temp 97.2; Pulse Ox 100% on R/A; Weight 81.65 kg; em1 Height 5 ft. 4 in. ; Pain 0/10; 10:06 BP 96 / 63; Pulse 60; Resp 16; Temp 97.8; Pulse Ox 99% ; db 08:07 Body Mass Index 30.90 (81.65 kg, 162.56 cm) - Percentile 94.3 % em1 08:07 Pain Scale: Adult em1 MDM: 07:46 Medical Screening Exam initiated rn 09:26 Differential diagnosis: depression, suicidal ideation. Data reviewed: vital signs, rn nurses notes, and as a result, I will admit patient. Consideration of Admission/Observation Patient was admitted/placed on observation. Escalation of care including admission/observation considered. Counseling: I had a detailed discussion with the patient and/or guardian regarding the historical points, exam findings, and any diagnostic results supporting the discharge/admit diagnosis, the need to transfer to another facility. 10/01 08:05 Order name: Acetaminophen; Complete Time: 09: rn 10/01 08:05 Order name: Basic Metabolic Panel; Complete Time: : 10/01 08:05 Order name: CBC with Diff; Complete Time: : 10/01 08:05 Order name: ETOH Level; Complete Time: : 10/01 08:05 Order name: Hepatic Function; Complete Time: : 10/01 08:05 Order name: Test, Urine; Complete Time: : rn 10/01 08:05 Order name: Ptt, Activated; Complete Time: : rn 10/01 08:05 Order name: Salicylate; Complete Time: : 10/01 08:05 Order name: Urine Drug Screen; Complete Time: : rn 10/01 08:36 Order name: Protime (+INR) EDMS 10/01 08:05 Order name: EKG - Nurse/Tech; Complete Time: 08:49 rn 10/01 08:05 Order name: IV Saline Lock; Complete Time: 08:31 rn 10/01 08:05 Order name: Labs collected and sent; Complete Time: 08:31 rn 10/01 08:05 Order name: Suicide Precautions; Complete Time: 08:31 rn 10/01 08:05 Order name: Suicide Screening ([place]); Complete Time: 09:23 rn EC:52 Rate is 70 beats/min. Rhythm is regular. QRS [place] is Normal. [place] interval is normal. QRS rn interval is normal. QT interval is normal. No Q waves. T waves are Normal. No ST changes noted. Clinical impression: NSR w/ Non-specific ST/T Changes. Interpreted by me. Reviewed by me. Administered Medications: 08:45 Drug: Ibuprofen PO 600 mg PO once Route: PO; db 09:23 Follow up: Response: No adverse reaction db Disposition Summary: 10/01/24 09:27 Transfer Ordered Notes: Transfer Location: [facility] Facility rn Reason: Higher level of care rn Condition: Stable rn Problem: new rn Symptoms: are unchanged rn Accepting Physician: (10/01/24 10:16) db Diagnosis - Suicidal ideations rn Forms: - Medication Reconciliation Form rn - SBAR form rn Signatures: Dispatcher [employer] EDMS Jcarlos Harden MD MD rn Benton, Danielle, RN RN db Corrections: (The following items were deleted from the chart) 08:06 08:06 ACETAMINOPHEN+C.LAB.BRZ ordered. EDMS EDMS 08:06 08:06 BASIC METABOLIC PANEL+C.LAB.BRZ ordered. EDMS EDMS 08:06 08:06 CBC+H.LAB.BRZ ordered. EDMS EDMS 08:06 08:06 ETHANOL+C.LAB.BRZ ordered. EDMS EDMS 08:06 08:06 HEPATIC FUNCTION+C.LAB.BRZ ordered. EDMS EDMS 08:06 08:06 Test, Urine+UC.LAB.BRZ ordered. EDMS EDMS 08:06 08:06 PTT, ACTIVATED+COAG.LAB.BRZ ordered. EDMS EDMS 08:06 08:06 SALICYLATE+C.LAB.BRZ ordered. EDMS EDMS 08:06 08:06 URINE DRUG SCREEN+UC.LAB.BRZ ordered. EDMS EDMS 08:36 08:06 PROTIME (+INR)+COAG.LAB.BRZ ordered. EDMS EDMS 10:16 09:27 Dr. rausch db
[2024-10-01 10:41] VITALS: BP 96/63; TEMP 97.8; O2SAT 99
[2024-10-01 10:44] LABS: PT Prothrombin Time 13.2
[2024-10-01 10:45] LABS: Protime INR 1.1
== END 2024-10-01 10:16 ==
LOC: ER 07:42
DX: R45.851 Suicidal ideations (principal); F32.A Depression, unspecified
CPT/HCPCS: 36415; 80048; 80076; 80143; 80179; 80307; 81025; 82077; 85025; 85610; 85730; 93005; 99285